=== PATIENT | female | born 1965 | race Caucasian/White ===

== ENCOUNTER 2021-12-11 10:45 | Emergency (ER) | payer OTHER ==
[2021-12-11 11:04] VITALS: RESP 18; TEMP 98.1
--- NOTE | 2021-12-11 11:20 | ED ---
SOB HPI - General Chief Complaint: Shortness of Breath Stated Complaint: Covid+/BAM Time Seen by Provider: 12/11/21 11:06 Source: patient, RN notes reviewed Mode of arrival: ambulatory Limitations: no limitations - History of Present Illness Initial Comments: She presents to the emergency department complaining of cough, body aches, mild headache, patient tested positive for COVID-19 at an outpatient pharmacy. Since she started getting symptoms on Sunday. Patient denies any significant shortness of breath. No chest pain. Surrounding. No changes in bowel when she urination. No skin rashes or lesions. No changes in vision or hearing. No numbness or tingling. Patient does have a history of type 2 diabetes mellitus, hypertension, cardiovascular disease. Patient did get her first series of vaccinations last year. Patient has not had the booster - Related Data Allergies Allergy/AdvReac Type Severity Reaction Status Date / Time codeine AdvReac Vomiting Verified 12/11/21 11:04 Review of Systems ROS Statement: Those systems with pertinent positive or pertinent negative responses have been documented in the HPI. ROS Other: All systems not noted in ROS Statement are negative. Past Medical History Past Medical History: Diabetes Mellitus Additional Past Medical History / Comment(s): heart disease, raynaud's History of Any Multi-Drug Resistant Organisms: None Reported Past Surgical History: Tubal Ligation Past Psychological History: Depression Smoking Status: Former smoker Past Alcohol Use History: None Reported Past Drug Use History: None Reported General Exam - General Exam Comments Initial Comments: Healthy-appearing 56-year-old female in no acute distress. Does not appear to be ill or toxic. Dry cough noted through the course of the examination. No tachypnea. No increased work of breathing. Limitations: no limitations General appearance: alert, in no apparent distress Head exam: Present: atraumatic, normocephalic, normal inspection Eye exam: Present: normal appearance, PERRL, EOMI. Absent: scleral icterus, conjunctival injection, periorbital swelling ENT exam: Present: normal exam, mucous membranes moist Neck exam: Present: normal inspection. Absent: tenderness, meningismus, lymphadenopathy Respiratory exam: Present: normal lung sounds bilaterally. Absent: respiratory distress, wheezes, rales, rhonchi, stridor Cardiovascular Exam: Present: regular rate, normal rhythm, normal heart sounds. Absent: systolic murmur, diastolic murmur, rubs, gallop, clicks GI/Abdominal exam: Present: soft, normal bowel sounds. Absent: distended, tenderness, guarding, rebound, rigid Extremities exam: Present: normal inspection, full ROM, normal capillary refill. Absent: tenderness, pedal edema, joint swelling, calf tenderness Back exam: Present: normal inspection Neurological exam: Present: alert, oriented X3, CN II-XII intact Psychiatric exam: Present: normal affect, normal mood Skin exam: Present: warm, dry, intact, normal color. Absent: rash Course Vital Signs 12/11/21 12/11/21 10:58 12:08 Temperature 98.1 F Pulse Rate 78 63 Respiratory 18 18 Rate Blood Pressure 126/78 122/68 O2 Sat by Pulse 95 94 L Oximetry - Reevaluation(s) Reevaluation #1: 12/11/21 12:10 Patient reevaluated prior to discharge and is resting comfortably room. Vital signs stable, patient afebrile. Oxygen saturation is normal. No tachypnea. No increased work of breathing. Chest x-ray is clear. Medical Decision Making - Medical Decision Making Patient presents to the emergency department requesting monoclonal antibody. Does meet criteria for hypertension, diabetes mellitus. Patient has not been immunized with the booster. Follow-up with your regular physician as directed. Return to the ER immediately if any symptoms worsen, new symptoms arise, or any other problems develop. She meets criteria for monoclonal antibody infusion. This was ordered. Patient's chest x-ray was clear. Relatively mild symptoms related to COVID-19. Patient was counseled on quarantine measures. All questions answered. Follow-up with your regular physician as directed. Return to the ER immediately if any symptoms worsen, new symptoms arise, or any other problems develop. Disposition Clinical Impression: COVID-19, Encounter for medical care Disposition: HOME SELF-CARE Instructions (If sedation given, give patient instructions): Coronavirus Disease 2019 (COVID-19) Additional Instructions: SELF QUARANTINE DISCHARGE: As you are at risk for symptoms due to coronavirus, please stay home and stay away from others as much as possible. Please maintain social distance of 6 feet if possible. You should not return to work until at least 3 days (72 hours) have passed since recovery of symptoms. This defined as resolution of fever without the use of fever reducing medicines and improvement in respiratory symptoms (e.g,, cough, shortness of breath) Isolation can end at least 5 days after symptom onset and after fever ends for 24 hours (without the use of fever-reducing medication) and symptoms are improving, if these people can continue to properly wear a well-fitted mask around others for 5 more days after the 5-day isolation period. If you're still having symptoms at the end of 5 day period, isolate for an additional 5 days. More information about what to do if you are sick can be found on the CDC website at https://www.cdc.gov/coronavirus/2019-ncov/ag-wvl-gqt-sick/ejuwe-nyxa-ryef.html Expect the symptoms to last for 7-14 days from onset. Use acetaminophen (Tylenol) as needed for discomfort. You can take a maximum of 1 gram every 6 hours for discomfort, with your total dose in 24 hours not exceeding 4 grams. Be sure to maintain hydration. Drink continuous water and/or items high in vitamin C, such as orange juice and/or lemonade. Unless you have high blood pressure, you may consider Sudafed (which is [id number]) for nasal congestion. I would suggest that a short acting Sudafed rather than the 24 hour Sudafed. For a cough you may take Mucinex or Robitussin. Also consider the use of Vicks Vapor Rub or your chest when you sleep. Use a humidifier that is cleaned frequently, in the bedroom at night. For Nausea /Vomiting/Diarrhea associated with your Illness: o Small frequent sips of room temperature liquids. o Diet: [place] Foods - If you are still experiencing discomfort and/or nausea please slowly advancing your diet using the BRAT Diet = bananas, rice, apples/apple sauce, toast. o With diarrhea avoid any dairy for 48 hours after symptoms resolved. o Continue with activity as tolerated. If your symptoms do get worse and you believe that the upper respiratory infection has developed into something else, such as pneumonia or severe dehydration, please return to the emergency department or follow-up with your primary care. But expect to be symptomatic for the days as indicated above Is patient prescribed a controlled substance at d/c from ED?: No Referrals: Monet Ngo DO [Primary Care Provider] - 1-2 days Time of Disposition: 12:11
[2021-12-11] MEDS ORDERED: BAMLANIVIMAB (EUA) 700 MG, ETESEVIMAB (EUA) 1,400 MG in SODIUM CHLORIDE 0.9% 100 ML IVPB ONE (11:45)
[2021-12-11] MEDS ORDERED: SODIUM CHLORIDE 0.9% 50 ML IVPB ONE (11:45)
--- NOTE | 2021-12-11 11:59 | XR ---
EXAMINATION TYPE: XR chest 1V DATE OF EXAM: 12/11/2021 COMPARISON: NONE HISTORY: Cough TECHNIQUE: Single frontal view of the chest is obtained. FINDINGS: There is no focal air space opacity, pleural effusion, or pneumothorax seen. The cardiac silhouette size is within normal limits. The osseous structures are intact. IMPRESSION: No acute process.
[2021-12-11 13:36] VITALS: BP 128/72; PULSE 72
== END 2021-12-11 13:37 | disposition home or self-care (01) ==
LOC: EC 10:45
DX: U07.1 COVID-19 (principal); Z51.89 Encounter for other specified aftercare; E11.9 Type 2 diabetes mellitus without complications; F32.A Depression, unspecified; Z88.5 Allergy status to narcotic agent; Z98.51 Tubal ligation status; Z87.891 Personal history of nicotine dependence
CPT/HCPCS: 99284; M0245; 71045